=== PATIENT | female | born 1980 | race Caucasian/White ===

== ENCOUNTER 2018-01-20 23:13 | Emergency (ER) | payer SELFPAY ==
[~2018-01-20] VITALS: Ht 152.4 cm; Wt 97.1 kg
[2018-01-20 23:27] VITALS: BP 114/74
--- NOTE | 2018-01-20 23:31 | NUR ---
PT AMBULATED TO CHAIR D
--- NOTE | 2018-01-20 23:38 | NUR ---
Dr. Dawkins evaluating patient.
--- NOTE | 2018-01-20 23:38 | NUR ---
PATIENT PRESENTS TO ED WITH C/O GENERALIZED RASH OVER ENTIRE BODY. STARTED LAST NOC, BUT HAS PROGRESSED. NO MED HX PT DENIES N/V/D; AAOX4 WITH EVEN AND STEADY GAIT; LUNGS CLEAR BL; HR EVEN AND REGULAR; PT DENIES ANY FEVER, CP, SOB, OR COUGH AT THIS TIME; PATIENT STATES PAIN OF 0/10 AT THIS TIME; VSS; PATIENT POSITIONED FOR COMFORT; HOB ELEVATED; BEDRAILS UP X2; BED DOWN. ER MD MADE AWARE OF PT STATUS.
[2018-01-20] MEDS ORDERED: methylPREDNISolone SS 125 MG in WATER STERILE 2 ML IM ONE (23:40)
[2018-01-20] MEDS ORDERED: diphenhydrAMINE 50 MG/ML VIAL IM ONE (23:40)
[2018-01-20] MEDS ORDERED: methylPREDNISolone SS 125 MG/2 ML VIAL ONE (23:52)
[2018-01-21 00:35] VITALS: BP 133/75
--- NOTE | 2018-01-21 00:38 | NUR ---
Patient discharged with v/s stable. Written and verbal after care instructions given and explained. Patient alert, oriented and verbalized understanding of instructions. Ambulatory with steady gait. All questions addressed prior to discharge. ID band removed. Patient advised to follow up with PMD. Rx of METHYLPREDNISOLONE, BENADRYL given. Patient educated on indication of medication including possible reaction and side effects. Opportunity to ask questions provided and answered.
== END 2018-01-21 00:38 | disposition home or self-care (01) ==
LOC: MED 23:13
DX: T78.40XA Allergy, unspecified, initial encounter (principal); L29.9 Pruritus, unspecified; X58.XXXA Exposure to other specified factors, initial encounter
CPT/HCPCS: 96372; 99284; J0171; J1200; J2930

== ENCOUNTER 2021-03-01 21:02 | Emergency (ER) | payer MEDICAID ==
[~2021-03-01] VITALS: Ht 152.4 cm; Wt 86.2 kg
[2021-03-01 21:05] VITALS: BP 132/75
--- NOTE | 2021-03-01 21:05 | NUR ---
TO BED AMBULATORY
--- NOTE | 2021-03-01 21:05 | NUR ---
40 YO F BIB SELF FOR C/O L EAR PAIN. PT STATES ACHINESS/THROBBING IN NATURE. DENIES FEVER CHILLS, DRAINAGE COMING OUT OF EAR. PT DID STATE SHE HAD CO DIZZINESS. WILL UPDATE ERMD WILL CONTINUE TO OBSERVE AX DENIES RX DENIES HX DENIES LMP 02-08-21
[2021-03-01 22:20] VITALS: BP 108/68
--- NOTE | 2021-03-01 22:25 | NUR ---
Patient discharged with v/s stable. Written and verbal after care instructions given and explained. Patient verbalized understanding. Ambulatory with steady gait. All questions addressed prior to discharge. Advised to follow up with PMD.
== END 2021-03-01 22:20 | disposition home or self-care (01) ==
LOC: MED 21:02
DX: H57.12 Ocular pain, left eye (principal); R42 Dizziness and giddiness
CPT/HCPCS: 99281

== ENCOUNTER 2021-03-20 23:59 | Emergency (ER) | payer MEDICAID ==
[~2021-03-20] VITALS: Ht 152.4 cm; Wt 93.9 kg
[2021-03-21 00:06] VITALS: BP 125/80
--- NOTE | 2021-03-21 00:25 | NUR ---
See patient assessment for more information.
[2021-03-21] MEDS: LIDOCAINE/PRILOCAINE 2.5% 5 GM TUBE TP ONE (01:03)
[2021-03-21] MEDS ORDERED: IBUP-1801 PO (01:43)
[2021-03-21] MEDS ORDERED: SULF-59 PO (01:43)
[2021-03-21 02:13] VITALS: BP 125/80
--- NOTE | 2021-03-21 02:13 | NUR ---
Patient discharged with v/s stable. Written and verbal after care instructions given and explained. Patient alert, oriented and verbalized understanding of instructions. Ambulatory with steady gait. All questions addressed prior to discharge. ID band removed. Patient advised to follow up with PMD. Rx of IBUPROFEN, BACTRIM given. Patient educated on indication of medication including possible reaction and side effects. Opportunity to ask questions provided and answered.
[2021-03-21] MEDS: HYDROcodone/APAP 5/325 MG 1 TAB TAB PO ONE (02:22)
== END 2021-03-21 02:13 | disposition home or self-care (01) ==
LOC: MED 23:59
DX: L03.011 Cellulitis of right finger (principal); Z79.899 Other long term (current) drug therapy
CPT/HCPCS: 90715; 99283

== ENCOUNTER 2021-04-26 16:32 | Emergency (ER) | payer MEDICAID ==
[~2021-04-26] VITALS: Ht 152.4 cm; Wt 91.2 kg
[~2021-04-26 16:32] MED LIST: IBUP-1801 PO; SULF-59 PO
[2021-04-26 16:57] VITALS: BP 104/67
--- NOTE | 2021-04-26 17:10 | NUR ---
Patient ambulated to bed 2 with family. RN evaluating the patient at bedside.
[2021-04-26] MEDS ORDERED: KETOROLAC 30 MG/ML VIAL IM ONE (17:20)
--- NOTE | 2021-04-26 17:37 | NUR ---
40 YEAR OLD FEMALE COMPLAINS OF LOWER BACK PAIN X2 DAYS. PT STATES SHE LIFTED SOMETHING HEAVY AT WORK AND HAS HAD PAIN SINCE. PT DENIES PROBLEMS IN URINATION OR DEFECATION. PT AOX4, BREATHING EVEN AND UNLABORED, SKIN WAMR AND DRY. BED IN LOWEST POSITION, LOCKED, BED RAIL UPX1. PMH - DENIES ALLERGIES - NKA
[2021-04-26] MEDS ORDERED: NAPR-1704 PO (17:38)
[2021-04-26 18:03] VITALS: BP 104/67
== END 2021-04-26 18:03 | disposition home or self-care (01) ==
LOC: MED 16:32
DX: S39.012A Strain of muscle, fascia and tendon of lower back, initial encounter (principal); Z79.899 Other long term (current) drug therapy; Z98.890 Other specified postprocedural states; X50.0XXA Overexertion from strenuous movement or load, initial encounter; Y93.89 Activity, other specified; Y92.89 Other specified places as the place of occurrence of the external cause; Y99.0 Civilian activity done for income or pay
CPT/HCPCS: 81002; 81025; 96372; 99283; J1885